=== PATIENT | female | born 1980 | race Asian ===

== ENCOUNTER 2016-08-19 16:03 | Emergency (ER) | payer OTHER ==
[~2016-08-19] VITALS: Ht 165.1 cm; Wt 66.5 kg
[2016-08-19 16:08] VITALS: Ht 165.1 cm; Wt 66.5 kg
[2016-08-19] MEDS ORDERED: IBUP800T25 PO (17:59)
[2016-08-19] MEDS ORDERED: IBUPROFEN 800 MG TAB PO ONE (18:00)
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
[2016-08-19 18:15] VITALS: BP 130/70; PULSE 78; RESP 16; TEMP 98.2
== END 2016-08-19 18:15 | disposition home or self-care (01) ==
LOC: FTE 16:03
DX: S13.4XXA Sprain of ligaments of cervical spine, initial encounter (principal); V49.40XA Driver injured in collision with unspecified motor vehicles in traffic accident, initial encounter
CPT/HCPCS: 99283